=== PATIENT | female | born 1995 | race African-American/Black ===

== ENCOUNTER 2016-04-02 14:00 | Emergency (ER) | payer OTHER ==
[~2016-04-02] VITALS: Ht 157.5 cm; Wt 72.3 kg
[~2016-04-02 14:00] MED LIST: MOTRIN600 MG PO
[2016-04-02] MEDS ORDERED: AMOXICILLIN500 MG PO (14:22)
[2016-04-02] MEDS ORDERED: FLOXIN OTIC SOLN5 ML LEFT EAR (14:22)
[2016-04-02 14:40] VITALS: BP 128/80
== END 2016-04-02 14:42 | disposition home or self-care (01) ==
LOC: EME 14:00
DX: H60.92 Unspecified otitis externa, left ear (principal); H66.92 Otitis media, unspecified, left ear
CPT/HCPCS: 99281; 99283

== ENCOUNTER 2017-04-03 21:14 | Emergency (ER) | payer OTHER ==
[~2017-04-03] VITALS: Ht 157.5 cm; Wt 74.8 kg
[~2017-04-03 21:14] MED LIST changes: +AMOXICILLIN500 MG PO; +FLOXIN OTIC SOLN5 ML LEFT EAR; +ZOFRAN ODT4 MG PO
[2017-04-04 02:55] LABS: APPEARANCE SL.HAZY ((CLEAR)); BILIRUBIN NEGATIVE; BLOOD NEGATIVE; COLOR YELLOW ((YELLOW)); GLUCOSE (STRIP) NEGATIVE; KETONES 20; LEUKOCYTES NEGATIVE; NITRITE NEGATIVE; PROTEIN (STRIP) 30; SPECIFIC GRAVITY 1.032 (1.000-1.030); UROBILINOGEN 0.2 MG/DL (0.2-1.0)
[2017-04-04 03:19] LABS: RED BLOOD CELLS 0-5 /HPF (0-5); WHITE BLOOD CELLS 0-5 /HPF (0-5)
[2017-04-04 03:20] LABS: BACTERIA 1+ /HPF; EPITHELIAL CELLS 1+ /HPF; MUCUS 3+ /LPF; UCUL ADDED? NO
[2017-04-04] MEDS ORDERED: LIDOCAINE700 MG TP (03:22)
[2017-04-04] MEDS ORDERED: MOTRIN600 MG PO (03:22)
[2017-04-04 03:37] VITALS: BP 137/71
== END 2017-04-04 03:37 | disposition home or self-care (01) ==
LOC: EME 21:14
PROVIDERS: Emergency Medicine
DX: M54.5 Low back pain (principal); R20.2 Paresthesia of skin
CPT/HCPCS: 72100; 81003; 99281; 99284

== ENCOUNTER 2017-05-06 15:09 | Emergency (ER) | payer OTHER ==
[~2017-05-06] VITALS: Ht 157.5 cm; Wt 74.7 kg
[~2017-05-06 15:09] MED LIST changes: +LIDOCAINE700 MG TP
[2017-05-06 16:46] VITALS: BP 131/69
== END 2017-05-06 16:46 | disposition home or self-care (01) ==
LOC: EME 15:09
DX: S61.210A Laceration without foreign body of right index finger without damage to nail, initial encounter (principal); H61.21 Impacted cerumen, right ear; W26.8XXA Contact with other sharp object(s), not elsewhere classified, initial encounter; Y93.89 Activity, other specified; Z23 Encounter for immunization
CPT/HCPCS: 99281; 99284

== ENCOUNTER 2017-06-29 17:50 | Emergency (ER) | payer OTHER ==
[~2017-06-29] VITALS: Ht 160 cm; Wt 75.3 kg
[2017-06-29] MEDS ORDERED: ATARAX,VISTARIL25 MG PO (19:04)
[2017-06-29 19:23] VITALS: BP 109/65
== END 2017-06-29 19:24 | disposition home or self-care (01) ==
LOC: EME 17:50
DX: R21 Rash and other nonspecific skin eruption (principal); L29.9 Pruritus, unspecified; J30.2 Other seasonal allergic rhinitis
CPT/HCPCS: 99281; 99284

== ENCOUNTER 2017-09-12 16:21 | Emergency (ER) | payer OTHER ==
[~2017-09-12] VITALS: Ht 157.5 cm; Wt 79.2 kg
[~2017-09-12 16:21] MED LIST changes: +ATARAX,VISTARIL25 MG PO
[2017-09-12 18:25] LABS: HEMATOCRIT 33.5 % (36.0-46.0); HEMOGLOBIN 10.8 G/DL (11.9-15.5); MCH 24.7 PG (29.0-34.0); MCHC 32.2 G/DL (30.0-36.0); MCV 76.5 FL (83-99); PLATELET COUNT 277 K/uL (156-360); RBC DIS.WIDTH-CV 16.8 % (11.8-14.6); RBC DIS.WIDTH-SD 46.5 % (39-53); RED BLOOD COUNT 4.38 M/uL (3.80-5.20); WHITE BLOOD COUNT 3.6 K/uL (4.1-10.2)
[2017-09-12 18:38] LABS: CHLORIDE 106 mEq/L (99-109); POTASSIUM 3.8 mEq/L (3.7-5.4); SODIUM 137 mEq/L (136-147)
[2017-09-12 18:40] LABS: GLUCOSE 88 mg/dL (70-99)
[2017-09-12 18:44] LABS: CREATININE 0.7 mg/dL (0.6-1.3); GFR ESTIMATE (CALCULATED) > 59 mL/min/
[2017-09-12 18:45] LABS: UREA NITROGEN (BUN) 4 mg/dL (9-23)
[2017-09-12 18:58] LABS: QUANTITATIVE HCG < 4.0 MIU/ML
[2017-09-12 19:51] LABS: THYROTROPIN (TSH) 1.8 MIU/L (0.4-5.5)
[2017-09-12 21:29] VITALS: BP 133/87
== END 2017-09-12 21:31 | disposition home or self-care (01) ==
LOC: EME 16:21
PROVIDERS: Physician Assistant
DX: E04.9 Nontoxic goiter, unspecified (principal)
CPT/HCPCS: 70491; 80048; 84439; 84443; 84702; 85027; 99281; 99284; J7030